=== PATIENT | female | born 1980 | race Caucasian/White ===

== ENCOUNTER 2018-11-03 13:50 | Observation (INO) ==
[2018-11-03 14:54] LABS: Bilirubin,Urine Negative (Negative); Blood,Urine Moderate (Negative); Clarity,Urine Turbid (Clear); Color,Urine Yellow (Yellow); Glucose,Urine (UA) Normal (Normal); Ketones,Urine Negative (Negative); Leukocyte Esterase,Urine Large (Negative); Nitrite,Urine Positive (Negative); PH,Urine 6.5 pH Units (5.0-8.0); Protein,Urine 100 mg/dL (Neg-Trace); Specific Gravity,Urine 1.011 (1.010-1.025); Urobilinogen,Urine Normal (Normal)
[2018-11-03 14:59] LABS: Bacteria,Urine Moderate per hpf (None-Few); Squamous Epithelial Cell,Urine Many per lpf (None-Few); WBC,Urine TNTC per hpf (0-3)
[2018-11-03 15:30] LABS: Basophils % 0.2 %; Hematocrit 38.6 % (35.3-44.9); Hemoglobin 13.3 g/dL (11.5-15.4); Immature Granulocytes % 0.5 % (0-4); Lymphocytes # 2.1 K/mcL (0.6-4.6); Lymphocytes % 8.4 %; Mean Corpuscular HGB Conc 34.5 g/dL (31.6-35.5); Mean Corpuscular Hemoglobin 30.6 pg (28.0-33.3); Mean Corpuscular Volume 88.7 fL (83.0-100.0); Mean Platelet Volume 9.5 fL (9.4-12.4); Monocytes % 8.2 %; Neutrophils # 20.5 K/mcL (1.6-8.9); Platelet Count 327 K/mcL (140-400); Red Blood Count 4.35 M/mcL (3.82-4.97); Red Cell Distribution Width 12.4 % (11.5-14.5); Segmented Neutrophils % 82.7 %
[2018-11-03 15:40] LABS: Alanine Aminotransferase 72 Units/L (7-52); Alkaline Phosphatase 82 Units/L (34-104); Amylase 19 Units/L (29-103); Aspartate Amino Transferase 37 Units/L (13-39); BUN/Creatinine Ratio 8 (6-26); Bilirubin,Direct 0.2 mg/dL (0.0-0.2); Bilirubin,Indirect 0.6 mg/dL (0.0-1.2); Bilirubin,Total 0.8 mg/dL (0.3-1.0); Blood Urea Nitrogen 7 mg/dL (6-20); Calcium 9.2 mg/dL (8.6-10.3); Carbon Dioxide 27 mEq/L (23-29); Chloride 97 mEq/L (98-107); Globulin 4.2 g/dL (2.4-3.5); Glucose 102 mg/dL (70-105); Lipase < 3 Units/L (11-82); Osmolality,Calculated 266 (280-300); Potassium 4.2 mEq/L (3.5-5.1); Sodium 129 mEq/L (136-145); Total Protein 8.2 g/dL (6.4-8.9); eGFR For Non-African Americans > 60 (> 60)
[2018-11-03] MEDS ORDERED: *HR* FentaNYL (PF) 100 MCG/2 ML VIAL IVP ONE (16:14)
[2018-11-03] MEDS ORDERED: cefTRIAXone 1,000 MG in 0.9 % Sodium Chloride Mini Bag 100 ML IVPB ONE (16:14)
[2018-11-03] MEDS ORDERED: Ondansetron 4 MG/2 ML VIAL IVP ONE (16:14)
[2018-11-03] MEDS ORDERED: 0.9 % Sodium Chloride 1,000 ML IVC ONE ×2 (16:14→17:45)
--- NOTE | 2018-11-03 16:16 | Emergency Department Note ---
Disposition Clinical Impression: Pyelonephritis Disposition: Admitted As Inpatient Condition: Fair General Adult HPI - General Chief complaint: ED Abdominal Pain Stated complaint: Flank pain Time Seen by Provider: 11/03/18 16:09 - History of Present Illness Pain Scale: 10 - Related Data Home Medications Medication Instructions Recorded Confirmed Cyanocobalamin (B-12) [Vitamin B12] 1,000 mcg PO DAILY 11/03/18 11/03/18 Allergies Allergy/AdvReac Type Severity Reaction Status Date / Time tramadol AdvReac Severe Unconscious Verified 11/03/18 14:21 Past Medical History - Past Medical History Medical history: Reports: non-contributory Surgical history: Reports: cholecystectomy, other (back surgery) Psychiatric history: Reports: no psych history - Social History Smoking Status: Current every day smoker Smokeless Tobacco Status: No Alcohol use: Reports: none Drug use: Reports: none Course Vital Signs Temperature 99.2 F 11/03/18 14:19 Pulse Rate 124 11/03/18 14:19 Respiratory Rate 16 11/03/18 14:19 Blood Pressure 109/66 11/03/18 14:19 O2 Sat by Pulse Oximetry 99 11/03/18 14:19 Temperature 99.2 F 11/03/18 16:20 Pulse Rate 123 11/03/18 18:32 Respiratory Rate 16 11/03/18 18:32 Blood Pressure 113/74 11/03/18 18:32 O2 Sat by Pulse Oximetry 95 11/03/18 18:32 Oxygen Delivery Oxygen Delivery Room Air Medical Decision Making - Lab Data Result diagrams: 11/03/18 14:22 11/03/18 14:22 Lab Results 11/03/18 11/03/18 11/03/18 Range/Units 14:00 14:00 14:22 WBC 24.8 H (4.3-11.1) K/mcL RBC 4.35 (3.82-4.97) M/mcL Hgb 13.3 (11.5-15.4) g/dL Hct 38.6 (35.3-44.9) % MCV 88.7 (83.0-100.0) fL MCH 30.6 (28.0-33.3) pg MCHC 34.5 (31.6-35.5) g/dL RDW 12.4 (11.5-14.5) % Plt Count 327 (140-400) K/mcL MPV 9.5 (9.4-12.4) fL Immature Gran % 0.5 (0-4) % Seg Neutrophils % 82.7 % Lymphocytes % 8.4 % Monocytes % 8.2 % Eosinophils % 0.0 % Basophils % 0.2 % Neutrophils # 20.5 H (1.6-8.9) K/mcL Lymphocytes # 2.1 (0.6-4.6) K/mcL Monocytes # 2.0 H (0.0-1.3) K/mcL Eosinophils # 0.0 (0.0-0.6) K/mcL Basophils # 0.0 (0.0-0.2) K/mcL Sodium (136-145) mEq/L Potassium (3.5-5.1) mEq/L Chloride (98-107) mEq/L Carbon Dioxide (23-29) mEq/L BUN (6-20) mg/dL Creatinine (0.60-1.20) mg/dL Est GFR ( Amer) (> 60) Est GFR (Non-Af Amer) (> 60) BUN/Creatinine Ratio (6-26) Glucose (70-105) mg/dL Calculated Osmolality (280-300) Calcium (8.6-10.3) mg/dL Total Bilirubin (0.3-1.0) mg/dL Direct Bilirubin (0.0-0.2) mg/dL Indirect Bilirubin (0.0-1.2) mg/dL AST (13-39) Units/L ALT (7-52) Units/L Alkaline Phosphatase (34-104) Units/L Serum Total Protein (6.4-8.9) g/dL Albumin (3.5-5.7) g/dL Globulin (2.4-3.5) g/dL Albumin/Globulin Ratio (1.1-2.2) Amylase (29-103) Units/L Lipase (11-82) Units/L Urine Color Yellow (Yellow) Urine Clarity Turbid A (Clear) Urine pH 6.5 (5.0-8.0) pH Units Ur Specific [place] 1.011 (1.010-1.025) Urine Protein 100 H (Neg-Trace) mg/dL Urine Glucose (UA) Normal (Normal) mg/dL Urine Ketones Negative (Negative) mg/dL Urine Blood Moderate H (Negative) Urine Nitrite Positive A (Negative) Urine Bilirubin Negative (Negative) Urine Urobilinogen Normal (Normal) mg/dL Ur Leukocyte Esterase Large H (Negative) Urine Microscopic RBC 3-5 H (0-3) per hpf Urine Microscopic WBC TNTC H (0-3) per hpf Ur Squamous Epith Cells Many H (None-Few) per lpf Urine Bacteria Moderate H (None-Few) per hpf Ur Culture Indicated? NO. A (NO) Urine Test Negative (Negative) 11/03/18 Range/Units 14:22 WBC (4.3-11.1) K/mcL RBC (3.82-4.97) M/mcL Hgb (11.5-15.4) g/dL Hct (35.3-44.9) % MCV (83.0-100.0) fL MCH (28.0-33.3) pg MCHC (31.6-35.5) g/dL RDW (11.5-14.5) % Plt Count (140-400) K/mcL MPV (9.4-12.4) fL Immature Gran % (0-4) % Seg Neutrophils % % Lymphocytes % % Monocytes % % Eosinophils % % Basophils % % Neutrophils # (1.6-8.9) K/mcL Lymphocytes # (0.6-4.6) K/mcL Monocytes # (0.0-1.3) K/mcL Eosinophils # (0.0-0.6) K/mcL Basophils # (0.0-0.2) K/mcL Sodium 129 L (136-145) mEq/L Potassium 4.2 (3.5-5.1) mEq/L Chloride 97 L (98-107) mEq/L Carbon Dioxide 27 (23-29) mEq/L BUN 7 (6-20) mg/dL Creatinine 0.85 (0.60-1.20) mg/dL Est GFR ( Amer) > 60 (> 60) Est GFR (Non-Af Amer) > 60 (> 60) BUN/Creatinine Ratio 8 (6-26) Glucose 102 (70-105) mg/dL Calculated Osmolality 266 L (280-300) Calcium 9.2 (8.6-10.3) mg/dL Total Bilirubin 0.8 (0.3-1.0) mg/dL Direct Bilirubin 0.2 (0.0-0.2) mg/dL Indirect Bilirubin 0.6 (0.0-1.2) mg/dL AST 37 (13-39) Units/L ALT 72 H (7-52) Units/L Alkaline Phosphatase 82 (34-104) Units/L Serum Total Protein 8.2 (6.4-8.9) g/dL Albumin 4.0 (3.5-5.7) g/dL Globulin 4.2 H (2.4-3.5) g/dL Albumin/Globulin Ratio 1.0 L (1.1-2.2) Amylase 19 L (29-103) Units/L Lipase < 3 L (11-82) Units/L Urine Color (Yellow) Urine Clarity (Clear) Urine pH (5.0-8.0) pH Units Ur Specific [place] (1.010-1.025) Urine Protein (Neg-Trace) mg/dL Urine Glucose (UA) (Normal) mg/dL Urine Ketones (Negative) mg/dL Urine Blood (Negative) Urine Nitrite (Negative) Urine Bilirubin (Negative) Urine Urobilinogen (Normal) mg/dL Ur Leukocyte Esterase (Negative) Urine Microscopic RBC (0-3) per hpf Urine Microscopic WBC (0-3) per hpf Ur Squamous Epith Cells (None-Few) per lpf Urine Bacteria (None-Few) per hpf Ur Culture Indicated? (NO) Urine Test (Negative) Attestation Statement - Attestation Attestation: I examined this patient and my medical decision-making was reviewed with the Resident Physician. I agree with the documented findings, disposition and treatment plan as described except to the extent set forth below. [id number] time provided Patient arrives complaining of right-sided flank pain and dysuria. She describes it "mckinney" when she urinates. She is uncomfortable appearing. Labs drawn at triage indicated leukocytosis. Concern for pyelonephritis. Patient evaluated in conjunction with the resident physician Dr. Monk
--- NOTE | 2018-11-03 16:32 | Emergency Department Note ---
Disposition Clinical Impression: Pyelonephritis Disposition: Admitted As Inpatient Condition: Fair Time of Disposition: 18:12 General Adult HPI - General Chief complaint: ED Abdominal Pain Stated complaint: Flank pain Time Seen by Provider: 11/03/18 16:09 Source: patient Mode of arrival: ambulatory Limitations: no limitations Nursing Notes Reviewed: Yes Vital Signs Reviewed: Yes - History of Present Illness HPI Narrative: This is a 38-year-old female with past medical history significant for cholecystectomy, migraines who presents with flank pain over the course of 3 days. Patient notes worsening right-sided flank pain, fevers/chills off and on, dysuria, urinary frequency, urgency, suprapubic abdominal pain, bloating. Associated with blurred vision, headache, weakness, fatigue, malaise. Denies hematuria, melena, hematochezia, diarrhea, constipation, chest pain, shortness o f breath. Pain is sharp and 10/10 at worst. Even when pain subsides, still rated 5/10, described as achy, dull. Managed with ibuprofen, Tylenol, 1 dose of Vicodin thus far. Has never had UTI in the past. History of cholecystectomy and tubal ligation previously. Pt Subjective Complaint: Flank Pain Onset (ago): day(s) (3 days ago) Location: back, abdomen, pelvis Radiation: flank Pain Severity: severe Pain Scale: 10 Quality: aching, sharp Consistency: constant Improves with: nothing Worsens with: nothing Associated symptoms: Reports: diaphoresis, fever/chills, headaches, loss of appetite, malaise, nausea/vomiting, weakness. Denies: confusion, chest pain, cough, rash, shortness of breath, syncope Treatments Prior to Arrival: NSAID - Related Data Previous Rx's Medication Instructions Recorded Cephalexin [Keflex] 500 mg PO QID 7 Days capsule 05/08/15 Clindamycin [Cleocin] 300 mg PO Q6HR 7 Days capsule 05/08/15 Ibuprofen [Motrin] 600 mg PO Q6H PRN #60 tablet 05/08/15 Diclofenac Sodium [Voltaren] 1 appl TP QID #100 gm 06/12/17 Magic Mouthwash [Magic Mouthwash 10 ml PO QID #240 ml 06/12/17 BLM] PredniSONE [Deltasone] 20 mg PO DAILY #12 tablet 06/12/17 Tizanidine HCl 4 mg PO TID #15 tablet 06/12/17 Allergies Allergy/AdvReac Type Severity Reaction Status Date / Time tramadol AdvReac Severe Unconscious Verified 11/03/18 14:21 All systems ED: reviewed and negative except as stated. Constitutional: Reports: fever, chills. Denies: weakness, night sweats Eyes: Reports: other (Blurry vision). Denies: vision change ENT ED: Reports: other (Dry mouth). Denies: hearing loss Cardiovascular: Denies: chest pain, palpitations, dyspnea on exertion Respiratory: Denies: cough, dyspnea, wheezes Gastrointestinal: Reports: abdominal pain, nausea. Denies: vomiting, diarrhea, constipation, hematemesis, melena, hematochezia Genitourinary: Reports: urgency, dysuria, frequency. Denies: hematuria Musculoskeletal: Reports: back pain (Flank pain) Integumentary: Denies: rash Neurological: Reports: headache Endocrine: Reports: fatigue Past Medical History - Past Medical History Attestation: Yes The following information was validated with the patient. Source: patient, old records reviewed Medical history: Reports: migraine Surgical history: Reports: cholecystectomy, other (back surgery) Psychiatric history: Reports: no psych history - Social History Smoking Status: Current every day smoker Smokeless Tobacco Status: No Alcohol use: Reports: none Drug use: Reports: none Physical Exam 38-year-old female in obvious pain - General Limitations: no limitations General appearance: alert, in no apparent distress - Head Head exam: atraumatic, normocephalic, normal inspection - Eye Eye exam: Present: normal appearance, PERRL, EOMI - ENT ENT exam: normal exam, normal oropharynx, mucous membranes dry - Chest Chest inspection: Present: normal inspection, symmetric chest wall rise - Respiratory Respiratory exam: Present: normal lung sounds bilaterally - Cardiovascular Cardiovascular exam: Present: normal rhythm, tachycardia, normal heart sounds, +S1 - Abdominal Exam Abdominal exam: Present: soft, tenderness (Diffuse mild tenderness to pal pation), normal bowel sounds, other (Right-sided CVA tenderness). Absent: distention, guarding, rebound, Rovsing's sign, tenderness at [place]Bur[place]'s Point Abdominal tenderness: Present: diffuse - Back Exam Back exam: Present: normal inspection, full ROM, CVA tenderness (R). Absent: muscle spasm, paraspinal tenderness - Neurological Exam Neurological exam: Present: alert, oriented X3, CN II-XII intact - Psychiatric Psychiatric exam: Present: normal affect, normal mood Course Course Narrative: 38-year-old female presents with three-day of right-sided flank pain, fevers/chills, dysuria, urinary frequency. Leukocytosis = 24.8. Urinalysis = positive blood, positive nitrates, positive leukocyte esterase. On physical exam, looks to be in significant pain in moderate distress. Patient has right CVA tenderness, diffuse abdominal tenderness to palpation. Amylase and lipase were negative. LFTs were also negative. Patient was given fentanyl for pain control, bolus of normal saline, and started on ceftriaxone for broad spectrum coverage for suspected pyelonephritis. CT abdomen and pelvis ordered. Notable for infiltration of fat and pararenal spaces bilaterally more so on the right side. No obstructing stone visualized. Findings suggestive of pyelonephritis. Given likelihood of pyelonephritis, spoke with Dr. Estevez and will admit patient to hospitalist service. We will additionally give patient 1 L bolus of normal saline. - Reevaluation(s) Reevaluation #1: Patient seen and examined with Dr. Calle. Labs indicate leukocytosis = 24.8. Also noted to have hyponatremia = 129. Otherwise LFTs within normal limits. UA notable for positive blood, positive nitrites, positive leukocyte esterase. UPreg = negative. He is is start patient on pain control with fentanyl. We will give bolus of normal saline. We will try to control mild nausea with Zofran, and we will start ceftriaxone for broad spectrum antibiotic coverage. Will order CT abdomen and pelvis to evaluate for perinephric abscess and/or nephrolithiasis. Time: 16:45 Reevaluation #2: On reevaluation, patient is significantly less pain after pain medication. Given signs and symptoms of pyelonephritis, patient may benefit from hospitalization and continued IV antibiotic therapy. Time: 17:20 Reevaluation #3: Spoke with admitting hospitalist Dr. Estevez who agreed to admit to hospitalist service for management of pyelonephritis. Time: 17:50 Vital Signs Temperature 99.2 F 11/03/18 14:19 Pulse Rate 124 11/03/18 14:19 Respiratory Rate 16 11/03/18 14:19 Blood Pressure 109/66 11/03/18 14:19 O2 Sat by Pulse Oximetry 99 11/03/18 14:19 Temperature 99.2 F 11/03/18 16:20 Pulse Rate 114 11/03/18 16:20 Respiratory Rate 16 11/03/18 16:20 Blood Pressure 112/78 11/03/18 16:20 O2 Sat by Pulse Oximetry 98 11/03/18 16:20 Oxygen Delivery Oxygen Delivery Room Air Medical Decision Making - [facility] Narrative Medical decision making narrative: This is a 38-year-old female who presents with three-day of right-sided flank pain, dysuria, frequency. On exam, patient is in notable distress, and reports pain on her right side. Vitals show that she was tachycardic and tachypneic, but afebrile. Labs notable for leukocytosis = 24.8. UA = positive blood, positive nauseous, positive leukocyte esterase. Amylase and lipase were negative. Ordered CT and abdomen and pelvis to evaluate for perinephric abscess and nephrolithiasis, which were both negative. Patient started on fluids, ceftriaxone, and given pain and nausea control. Discussed with the admitting hospitalist Dr. Estevez who agreed to accept patient for further management of pyelonephritis. - Differential Diagnosis Pyelonephritis, UTI, nephrolithiasis, perinephric abscess - Medical Records Medical records reviewed: Yes I reviewed the patient's medical records. - Lab Data Lab results reviewed: Yes I reviewed the patient's lab results. Result diagrams: 11/03/18 14:22 11/03/18 14:22 Lab Results 11/03/18 11/03/18 11/03/18 Range/Units 14:00 14:00 14:22 WBC 24.8 H (4.3-11.1) K/mcL RBC 4.35 (3.82-4.97) M/mcL Hgb 13.3 (11.5-15.4) g/dL Hct 38.6 (35.3-44.9) % MCV 88.7 (83.0-100.0) fL MCH 30.6 (28.0-33.3) pg MCHC 34.5 (31.6-35.5) g/dL RDW 12.4 (11.5-14.5) % Plt Count 327 (140-400) K/mcL MPV 9.5 (9.4-12.4) fL Immature Gran % 0.5 (0-4) % Seg Neutrophils % 82.7 % Lymphocytes % 8.4 % Monocytes % 8.2 % Eosinophils % 0.0 % Basophils % 0.2 % Neutrophils # 20.5 H (1.6-8.9) K/mcL Lymphocytes # 2.1 (0.6-4.6) K/mcL Monocytes # 2.0 H (0.0-1.3) K/mcL Eosinophils # 0.0 (0.0-0.6) K/mcL Basophils # 0.0 (0.0-0.2) K/mcL Sodium (136-145) mEq/L Potassium (3.5-5.1) mEq/L Chloride (98-107) mEq/L Carbon Dioxide (23-29) mEq/L BUN (6-20) mg/dL Creatinine (0.60-1.20) mg/dL Est GFR ( Amer) (> 60) Est GFR (Non-Af Amer) (> 60) BUN/Creatinine Ratio (6-26) Glucose (70-105) mg/dL Calculated Osmolality (280-300) Calcium (8.6-10.3) mg/dL Total Bilirubin (0.3-1.0) mg/dL Direct Bilirubin (0.0-0.2) mg/dL Indirect Bilirubin (0.0-1.2) mg/dL AST (13-39) Units/L ALT (7-52) Units/L Alkaline Phosphatase (34-104) Units/L Serum Total Protein (6.4-8.9) g/dL Albumin (3.5-5.7) g/dL Globulin (2.4-3.5) g/dL Albumin/Globulin Ratio (1.1-2.2) Amylase (29-103) Units/L Lipase (11-82) Units/L Urine Color Yellow (Yellow) Urine Clarity Turbid A (Clear) Urine pH 6.5 (5.0-8.0) pH Units Ur Specific [place] 1.011 (1.010-1.025) Urine Protein 100 H (Neg-Trace) mg/dL Urine Glucose (UA) Normal (Normal) mg/dL Urine Ketones Negative (Negative) mg/dL Urine Blood Moderate H (Negative) Urine Nitrite Positive A (Negative) Urine Bilirubin Negative (Negative) Urine Urobilinogen Normal (Normal) mg/dL Ur Leukocyte Esterase Large H (Negative) Urine Microscopic RBC 3-5 H (0-3) per hpf Urine Microscopic WBC TNTC H (0-3) per hpf Ur Squamous Epith Cells Many H (None-Few) per lpf Urine Bacteria Moderate H (None-Few) per hpf Ur Culture Indicated? NO. A (NO) Urine Test Negative (Negative) 11/03/18 Range/Units 14:22 WBC (4.3-11.1) K/mcL RBC (3.82-4.97) M/mcL Hgb (11.5-15.4) g/dL Hct (35.3-44.9) % MCV (83.0-100.0) fL MCH (28.0-33.3) pg MCHC (31.6-35.5) g/dL RDW (11.5-14.5) % Plt Count (140-400) K/mcL MPV (9.4-12.4) fL Immature Gran % (0-4) % Seg Neutrophils % % Lymphocytes % % Monocytes % % Eosinophils % % Basophils % % Neutrophils # (1.6-8.9) K/mcL Lymphocytes # (0.6-4.6) K/mcL Monocytes # (0.0-1.3) K/mcL Eosinophils # (0.0-0.6) K/mcL Basophils # (0.0-0.2) K/mcL Sodium 129 L (136-145) mEq/L Potassium 4.2 (3.5-5.1) mEq/L Chloride 97 L (98-107) mEq/L Carbon Dioxide 27 (23-29) mEq/L BUN 7 (6-20) mg/dL Creatinine 0.85 (0.60-1.20) mg/dL Est GFR ( Amer) > 60 (> 60) Est GFR (Non-Af Amer) > 60 (> 60) BUN/Creatinine Ratio 8 (6-26) Glucose 102 (70-105) mg/dL Calculated Osmolality 266 L (280-300) Calcium 9.2 (8.6-10.3) mg/dL Total Bilirubin 0.8 (0.3-1.0) mg/dL Direct Bilirubin 0.2 (0.0-0.2) mg/dL Indirect Bilirubin 0.6 (0.0-1.2) mg/dL AST 37 (13-39) Units/L ALT 72 H (7-52) Units/L Alkaline Phosphatase 82 (34-104) Units/L Serum Total Protein 8.2 (6.4-8.9) g/dL Albumin 4.0 (3.5-5.7) g/dL Globulin 4.2 H (2.4-3.5) g/dL Albumin/Globulin Ratio 1.0 L (1.1-2.2) Amylase 19 L (29-103) Units/L Lipase < 3 L (11-82) Units/L Urine Color (Yellow) Urine Clarity (Clear) Urine pH (5.0-8.0) pH Units Ur Specific [place] (1.010-1.025) Urine Protein (Neg-Trace) mg/dL Urine Glucose (UA) (Normal) mg/dL Urine Ketones (Negative) mg/dL Urine Blood (Negative) Urine Nitrite (Negative) Urine Bilirubin (Negative) Urine Urobilinogen (Normal) mg/dL Ur Leukocyte Esterase (Negative) Urine Microscopic RBC (0-3) per hpf Urine Microscopic WBC (0-3) per hpf Ur Squamous Epith Cells (None-Few) per lpf Urine Bacteria (None-Few) per hpf Ur Culture Indicated? (NO) Urine Test (Negative) - Radiology Data Radiology results reviewed: Yes I reviewed the patient's radiology results.
[2018-11-03] MEDS ORDERED: Acetaminophen 325 MG TABLET PO PRN (20:38)
[2018-11-03] MEDS ORDERED: Naloxone 0.4 MG/ML INJ IVP PRN (20:38)
[2018-11-03] MEDS ORDERED: Ondansetron 4 MG/2 ML VIAL IVP PRN (20:38)
[2018-11-03] MEDS ORDERED: *HR* OxyCODONE Immed Rel 5 MG TABLET PO PRN (20:38)
[2018-11-03] MEDS ORDERED: Ketorolac 30 MG/ML VIAL IVP PRN (20:39)
[2018-11-03] MEDS: *HR* HYDROcodone/Acet 5/325 mg TABLET PO PRN (22:14)
[2018-11-03] MEDS: 0.9 % Sodium Chloride 1,000 ML IVC SCH (22:15)
--- NOTE | 2018-11-03 22:54 | Internal Med History&Physical ---
Date of Encounter: 11/03/18 Time of Encounter: 22:52 Internal Medicine - H&P: HPI Chief complaint: flank pain Admitted From: Home Plans for Post Hospital Care: Home History of present illness: Megan Joiner is a 38 year old woman with no reported past medical history who presents to the ER complaining of 3 days of right lumbar flank pain, dysuria, cloudy urine, pollakiuria and chills. She denied associated nausea, vomiting and diarrhea however. She was managing it with ibuprofen, APAP and Vicodin thus far. In the ER she was notably tachycardic. Her UA was remarkably suggestive of infection. CT of her abdomen and pelvis showed infiltration of the fat in the pararenal spaces more so on the right side with findings suggestive of pyelonephritis. She was started on fluid resuscitation and given an initial dose of ceftriaxone. She is admitted for further observation. At the time of my assessment her chief complaint was pain in notable discomfort. Vitals: Reviewed General: Well-developed female in antalgic posturing. Skin: Warm, dry HEENT: Dry mucous membranes. No conjunctivae pallor. Neck: No lymphadenopathy. No JVD. No carotid bruits. No palpable thyroid. Chest: Normal thoracic expansion. Normal breath sounds. Clear to auscultation. Heart: Normal S1 & S2; rhythmic. No rubs or murmurs. Abdomen: Non-distended, soft and tender to palpation on the right side. (+) right CVA tenderness. Extremities: No clubbing, cyanosis or edema. No calf tenderness. Normal distal pulses. Neurological: Awake, alert and oriented to person, place and time. No focal deficits. Psych: Affect appropriate. Past Med Surg Social Fam HX - Past Medical History Medical history: non-contributory Psychiatric history: no psych history - Past Surgical History Surgical History: cholecystectomy, other Additional surgical history: gallbladder 6 yrs ago, back 2 yrs ago - Social History Smoking Status: Current every day smoker Smokeless Tobacco Status: No Alcohol use: none Drug use: none - Family History Mother Adopted: No Living Status: Still Living Hx Family Cardiac Disorders: No Hx Family Respiratory Disorders: No Hx Family Cancer: No Hx Family GI Disorders: No Hx Family Endocrine Disorder: No Hx Family Neuromuscular Disorders: No Hx Family Neurologic Disorders: No Hx Family HEENT Disorders: No Hx Family Autoimmune Disorders: No Internal Medicine - H&P: Meds Cyanocobalamin (B-12) [Vitamin B12] 1,000 mcg PO DAILY 11/03/18 [History] Allergy/AdvReac Type Severity Reaction Status Date / Time tramadol AdvReac Severe Unconscious Verified 11/03/18 14:21 All Systems PM: A 10-system review of systems was performed and is negative for pertinent findings except as documented above in the HPI. - Constitutional Vitals: Temp Pulse Resp BP Pulse Ox 97.9 F 82 16 113/80 97 11/03/18 19:39 11/03/18 19:39 11/03/18 19:39 11/03/18 19:39 11/03/18 19:39 Exam: . Internal Med - H&P Results - Labs CBC & Chem 7: 11/03/18 14:22 11/03/18 14:22 Labs: Short CBC 11/03/18 Range/Units 14:22 WBC 24.8 H (4.3-11.1) K/mcL Hgb 13.3 (11.5-15.4) g/dL Hct 38.6 (35.3-44.9) % Plt Count 327 (140-400) K/mcL Neutrophils # 20.5 H (1.6-8.9) K/mcL BMP 11/03/18 14:22 Sodium 129 L Potassium 4.2 Chloride 97 L Carbon Dioxide 27 BUN 7 Creatinine 0.85 Glucose 102 Calcium 9.2 Liver Function 11/03/18 Range/Units 14:22 Total Bilirubin 0.8 (0.3-1.0) mg/dL Direct Bilirubin 0.2 (0.0-0.2) mg/dL AST 37 (13-39) Units/L ALT 72 H (7-52) Units/L Alkaline Phosphatase 82 (34-104) Units/L Albumin 4.0 (3.5-5.7) g/dL Urine 11/03/18 Range/Units 14:00 Urine Color Yellow (Yellow) Urine Clarity Turbid A (Clear) Urine pH 6.5 (5.0-8.0) pH Units Ur Specific [place] 1.011 (1.010-1.025) Urine Protein 100 H (Neg-Trace) mg/dL Urine Glucose (UA) Normal (Normal) mg/dL - Impressions ITS Impressions Abdomen/Pelvis CT 11/03/18 16:15 IMPRESSION: 1. Infiltration of the fat in the pararenal spaces bilaterally more so on the right side. No obstructing stone visualized. Findings suggest the possibility of pyelonephritis 2. Status post cholecystectomy 3. Normal appearing appendix D/ / Mendoza Moser MD / Mendoza Moser MD Interpreting Provider: Mendoza Moser MD - Assessment and Plan (1) Sepsis due to urinary tract infection Current Visit: Yes Status: Acute Assessment and plan: Sepsis syndrome as evidenced by high grade leukocytosis and tachycardia with a positive UA and CT scan that correlates with her clinical signs. Will send urine for culture. IVF hydration. Empiric ceftriaxone daily pending culture results. Pain control as needed. (2) Electrolyte abnormality Current Visit: Yes Status: Acute Assessment and plan: As evidenced by hyponatremia and hypochloremia possibly hypovolemic in origin. Supplementing with normal saline and will recheck in the morning. - Time Spent With Patient Total time spent is greater than 50% in coordination of care (as documented) at patient's floor/unit and/or counseling patient: Greater than 35 minutes
[2018-11-04 06:20] LABS: Basophils % 0.2 %; Eosinophils % 0.1 %; Hematocrit 36.5 % (35.3-44.9); Hemoglobin 12.1 g/dL (11.5-15.4); Immature Granulocytes % 0.5 % (0-4); Lymphocytes # 1.9 K/mcL (0.6-4.6); Lymphocytes % 9.6 %; Mean Corpuscular HGB Conc 33.2 g/dL (31.6-35.5); Mean Corpuscular Volume 90.3 fL (83.0-100.0); Mean Platelet Volume 10.5 fL (9.4-12.4); Monocytes # 1.5 K/mcL (0.0-1.3); Monocytes % 7.6 %; Neutrophils # 16.3 K/mcL (1.6-8.9); Platelet Count 205 K/mcL (140-400); Red Blood Count 4.04 M/mcL (3.82-4.97); Red Cell Distribution Width 12.6 % (11.5-14.5)
[2018-11-04] MEDS: 0.9 % Sodium Chloride 1,000 ML IVC SCH (06:58)
[2018-11-04] MEDS: *HR* Heparin 5,000 UNIT/ML VIAL SQ SCH ×2 (07:01→17:52)
[2018-11-04 07:16] LABS: BUN/Creatinine Ratio 11 (6-26); Blood Urea Nitrogen 9 mg/dL (6-20); Carbon Dioxide 21 mEq/L (23-29); Chloride 105 mEq/L (98-107); Glucose 89 mg/dL (70-105); Osmolality,Calculated 278 (280-300); Sodium 135 mEq/L (136-145); eGFR For Non-African Americans > 60 (> 60)
[2018-11-04] MEDS ORDERED: cefTRIAXone 1,000 MG in Water for inj. (sterile) 20 ML 10 ML IVPB SCH (09:00)
--- NOTE | 2018-11-04 10:15 | Internal Med Progress Note ---
<Keo Mccollum - Last Filed: 11/04/18 10:12> Hospitalist Progress Note - Encounter Date of Encounter: 11/04/18 Time of Encounter: 10:12 - Subjective Interval History: No acute events overnight. Patient states her right flank pain has improved but is still a 7 out of 10. She denies any nausea, vomiting. She tolerated her diet. She denies shortness of breath or chest pain. - Exam Vitals: Temp Pulse Resp BP Pulse Ox 99 F 109 20 96/65 99 11/04/18 07:36 11/04/18 07:36 11/04/18 07:36 11/04/18 07:36 11/04/18 07:36 Exam: General: pleasant, without distress Cardiovascualr: Regular rate and rhythm with no murmur, absent gallops or rubs, absent pedal edema, radial pulses 2 out of 4 Lungs: Clear to auscultation bilaterally, not in respiratory distress Abdomen: Soft nontender, nondistended positive bowel sounds, absent hepatomegaly Skin: warm and dry, absent rash, absent open wounds and nodules MSK: absent clubbing, cyanosis, joints without swelling Neuro: Alert oriented 3, no focal deficits Psych: good insight and judgment - Assessment and Plan (1) Sepsis Current Visit: Yes Status: Resolved Assessment and Plan: Patient was tachycardic, with leukocytosis on admission Tachycardia has resolved but still has leukocytosis of 19 Secondary to pyelonephritis She did receive a total of 3 L IV fluids. (2) Pyelonephritis Current Visit: Yes Status: Acute Assessment and Plan: Patient's right flank pain is improving with antibiotics, IV fluids and pain medication. We will continue ceftriaxone Blood cultures preliminarily negative Urine cultures pending. (3) Hyponatremia Current Visit: Yes Status: Acute Assessment and Plan: She has hyponatremia on admission. Likely secondary to poor oral intake Improving with IV fluids DVT Prophylaxis: Heparin subcutaneous - Time Spent with Patient Total time spent is greater than 50% in coordination of care (as documented) at patient's floor/unit and/or counseling patient: Internal Medicine: Result - Labs CBC & Chem 7: 11/04/18 05:29 11/04/18 05:29 Labs: Short CBC 11/03/18 11/04/18 Range/Units 14:22 05:29 WBC 24.8 H 19.8 H (4.3-11.1) K/mcL Hgb 13.3 12.1 (11.5-15.4) g/dL Hct 38.6 36.5 (35.3-44.9) % Plt Count 327 205 (140-400) K/mcL Neutrophils # 20.5 H 16.3 H (1.6-8.9) K/mcL BMP 11/03/18 11/04/18 14:22 05:29 Sodium 129 L 135 L Potassium 4.2 4.0 Chloride 97 L 105 Carbon Dioxide 27 21 L BUN 7 9 Creatinine 0.85 0.80 Glucose 102 89 Calcium 9.2 8.0 L Liver Function 11/03/18 Range/Units 14:22 Total Bilirubin 0.8 (0.3-1.0) mg/dL Direct Bilirubin 0.2 (0.0-0.2) mg/dL AST 37 (13-39) Units/L ALT 72 H (7-52) Units/L Alkaline Phosphatase 82 (34-104) Units/L Albumin 4.0 (3.5-5.7) g/dL Urine 11/03/18 Range/Units 14:00 Urine Color Yellow (Yellow) Urine Clarity Turbid A (Clear) Urine pH 6.5 (5.0-8.0) pH Units Ur Specific [place] 1.011 (1.010-1.025) Urine Protein 100 H (Neg-Trace) mg/dL Urine Glucose (UA) Normal (Normal) mg/dL - Impressions Impressions Abdomen/Pelvis CT 11/03/18 16:15 IMPRESSION: 1. Infiltration of the fat in the pararenal spaces bilaterally more so on the right side. No obstructing stone visualized. Findings suggest the possibility of pyelonephritis 2. Status post cholecystectomy 3. Normal appearing appendix D/ / Mendoza Moser MD / Mendoza Moser MD Interpreting Provider: Mendoza Moser MD Consult Discharge Plan - Plan Referrals: Yaron Albrecht MD [Primary Care Provider] - <Ric Morales - Last Filed: 11/04/18 13:21> Hospitalist Progress Note - Encounter Date of Encounter: 11/04/18 - Exam Vitals: Temp Pulse Resp BP Pulse Ox 98.7 F 106 20 93/59 96 11/04/18 10:57 11/04/18 10:57 11/04/18 10:57 11/04/18 10:57 11/04/18 10:57 - Assessment and Plan (1) Sepsis due to urinary tract infection Current Visit: Yes Status: Acute (2) Electrolyte abnormality Current Visit: Yes Status: Acute - Time Spent with Patient Total time spent is greater than 50% in coordination of care (as documented) at patient's floor/unit and/or counseling patient: Internal Medicine: Result - Labs CBC & Chem 7: 11/04/18 05:29 11/04/18 05:29 Labs: Short CBC 11/03/18 11/04/18 Range/Units 14:22 05:29 WBC 24.8 H 19.8 H (4.3-11.1) K/mcL Hgb 13.3 12.1 (11.5-15.4) g/dL Hct 38.6 36.5 (35.3-44.9) % Plt Count 327 205 (140-400) K/mcL Neutrophils # 20.5 H 16.3 H (1.6-8.9) K/mcL BMP 11/03/18 11/04/18 14:22 05:29 Sodium 129 L 135 L Potassium 4.2 4.0 Chloride 97 L 105 Carbon Dioxide 27 21 L BUN 7 9 Creatinine 0.85 0.80 Glucose 102 89 Calcium 9.2 8.0 L Liver Function 11/03/18 Range/Units 14:22 Total Bilirubin 0.8 (0.3-1.0) mg/dL Direct Bilirubin 0.2 (0.0-0.2) mg/dL AST 37 (13-39) Units/L ALT 72 H (7-52) Units/L Alkaline Phosphatase 82 (34-104) Units/L Albumin 4.0 (3.5-5.7) g/dL Urine 11/03/18 Range/Units 14:00 Urine Color Yellow (Yellow) Urine Clarity Turbid A (Clear) Urine pH 6.5 (5.0-8.0) pH Units Ur Specific [place] 1.011 (1.010-1.025) Urine Protein 100 H (Neg-Trace) mg/dL Urine Glucose (UA) Normal (Normal) mg/dL - Impressions Impressions Abdomen/Pelvis CT 11/03/18 16:15 IMPRESSION: 1. Infiltration of the fat in the pararenal spaces bilaterally more so on the right side. No obstructing stone visualized. Findings suggest the possibility of pyelonephritis 2. Status post cholecystectomy 3. Normal appearing appendix D/ / Mendoza Moser MD / Mendoza Moser MD Interpreting Provider: Mendoza Moser MD - Attending Attestation I have seen and independently assessed this patient and I agree with plan as documented above Plan Sepsis 2/2 to acute pyelonpehritis. Continue IV fluids and antibiotics <Keo Mccollum - Last Filed: 11/04/18 10:12> (1) Sepsis Qualifiers: Sepsis type: sepsis due to unspecified organism Qualified Code(s): A41.9 - Sepsis, unspecified organism
[2018-11-04] MEDS: cefTRIAXone 2,000 MG in Water for inj. (sterile) 20 ML 20 ML IVP SCH (10:16)
[2018-11-04] MEDS: *HR* HYDROcodone/Acet 5/325 mg TABLET PO PRN ×2 (10:26→17:51)
[2018-11-04] MEDS: Nicotine 21 MG PATCH.TD24 TD SCH (14:39)
[2018-11-05] MEDS: *HR* HYDROcodone/Acet 5/325 mg TABLET PO PRN (05:15)
[2018-11-05] MEDS: *HR* Heparin 5,000 UNIT/ML VIAL SQ SCH (05:16)
[2018-11-05] MEDS: Nicotine 21 MG PATCH.TD24 TD SCH (09:58)
[2018-11-05] MEDS: cefTRIAXone 2,000 MG in Water for inj. (sterile) 20 ML 20 ML IVP SCH (09:58)
[2018-11-05 10:08] LABS: Basophils % 0.2 %; Eosinophils % 0.1 %; Hematocrit 34.7 % (35.3-44.9); Hemoglobin 12.2 g/dL (11.5-15.4); Immature Granulocytes % 0.6 % (0-4); Lymphocytes # 2.1 K/mcL (0.6-4.6); Lymphocytes % 15.9 %; Mean Corpuscular HGB Conc 35.2 g/dL (31.6-35.5); Mean Corpuscular Hemoglobin 30.5 pg (28.0-33.3); Mean Corpuscular Volume 86.8 fL (83.0-100.0); Mean Platelet Volume 10.3 fL (9.4-12.4); Monocytes # 0.9 K/mcL (0.0-1.3); Monocytes % 6.9 %; Neutrophils # 10.1 K/mcL (1.6-8.9); Platelet Count 200 K/mcL (140-400); Red Cell Distribution Width 12.3 % (11.5-14.5); Segmented Neutrophils % 76.3 %
[2018-11-05 10:58] VITALS: BP 98/68
[2018-11-05 11:11] LABS: BUN/Creatinine Ratio 11 (6-26); Blood Urea Nitrogen 8 mg/dL (6-20); Calcium 8.2 mg/dL (8.6-10.3); Carbon Dioxide 19 mEq/L (23-29); Chloride 106 mEq/L (98-107); Glucose 126 mg/dL (70-105); Osmolality,Calculated 280 (280-300); Potassium 4.6 mEq/L (3.5-5.1); Sodium 135 mEq/L (136-145); eGFR For Non-African Americans > 60 (> 60)
--- NOTE | 2018-11-05 12:13 | Discharge Summary ---
<Veda,Keo Cordon - Last Filed: 11/05/18 12:02> - NOTES TO OUTPATIENT PROVIDER Notes to Outpatient Provider: Patient admitted for pyelonephritis received 2 days of IV antibiotics. Will be discharged with 8 days of cefnidir Orders not resulted at time of discharge: Pending orders 11/03/18 18:13 Culture,Blood [BC] Stat Date of Encounter: 11/05/18 Time of Encounter: 12:02 - Discharge Diagnosis (1) Sepsis Priority: Primary Status: Resolved Qualifiers: Sepsis type: sepsis due to unspecified organism Qualified Code(s): A41.9 - Sepsis, unspecified organism (2) Pyelonephritis Priority: Secondary Status: Acute (3) Hyponatremia Priority: Secondary Status: Resolved Hospital course: Ms. Joiner is a 38 year old female presented nausea vomiting and right flank pain. CT of the pelvis showed right patella nephritis and patient was started on IV antibiotics and given IV fluids. Patient had sepsis secondary to polyneph ritis on admission which has resolved. She has been afebrile without tachycardia. She will be discharged today with Omnicef for 8 days for total of 10 days of antibiotics. She is tolerating diet and ambulating independently. Discharge discussed with: patient - Time Spent with Patient Total time spent providing and/or coordinating discharge services: - Discharge Medications Prescriptions: New Cefdinir [Omnicef] 300 mg PO BID #16 capsule Continue Cyanocobalamin (B-12) [Vitamin B12] 1,000 mcg PO DAILY Home Medications: Cyanocobalamin (B-12) [Vitamin B12] 1,000 mcg PO DAILY 11/03/18 [History] Cefdinir [Omnicef] 300 mg PO BID #16 capsule 11/05/18 [Rx] Allergies/Adverse Reactions: Allergy/AdvReac Type Severity Reaction Status Date / Time tramadol AdvReac Severe Unconscious Verified 11/03/18 14:21 Date of admission: 11/03/18 17:58 Primary care physician: Yaron Albrecht MD Discharging clinician: Keo Mccollum Anticipated date of discharge: 11/05/18 - Constitutional Vitals: Temp Pulse Resp BP Pulse Ox 98.2 F 94 17 98/68 100 11/05/18 10:57 11/05/18 10:57 11/05/18 10:57 11/05/18 10:57 11/05/18 10:57 Exam: General: pleasant, without distress Cardiovascualr: Regular rate and rhythm with no murmur, absent gallops or rubs, absent pedal edema, radial pulses 2 out of 4 Lungs: Clear to auscultation bilaterally, not in respiratory distress Abdomen: Soft nontender, nondistended positive bowel sounds, absent hepatomegaly Skin: warm and dry, absent rash, absent open wounds and nodules MSK: absent clubbing, cyanosis, joints without swelling Neuro: Alert oriented 3, no focal deficits Psych: good insight and judgment - Patient Status Disposition: Home, Self-Care Condition: Fair Functional capacity at discharge: independent ambulation Overall status at discharge: patient is progressing back to baseline - Discharge Instructions Follow Up With: Yaron Albrecht MD [Primary Care Provider] - 11/14/18 11:00 am (Please follow up as schedule...) - Diet and Activity Activity: increase activity as tolerated Diet: advance to your usual diet <Ric Morales A - Last Filed: 11/05/18 15:10> Orders not resulted at time of discharge: Pending orders 11/03/18 18:13 Culture,Blood [BC] Stat Date of Encounter: 11/05/18 - Discharge Diagnosis (1) Sepsis due to urinary tract infection Status: Acute (2) Electrolyte abnormality Status: Acute Hospital course: Ms. Joiner is a 38 year old female - Time Spent with Patient Total time spent providing and/or coordinating discharge services: Date of admission: 11/03/18 17:58 Primary care physician: Yaron Albrecht MD - Constitutional Vitals: Temp Pulse Resp BP Pulse Ox 98.2 F 94 17 98/68 100 11/05/18 10:57 11/05/18 10:57 11/05/18 10:57 11/05/18 10:57 11/05/18 10:57 - Attending Attestation I have seen and independently assessed this patient and I agree with plan as documented above Exam Gen. NAD Resp CTAB GI. soft Plan Sepsis 2/2 to acute pyelonpehritis. Improved on IV fluids and antibiotics. Discharged to complete 10 more days of cefdinir. 35 minutes was spent discharging this patient
== END 2018-11-05 14:32 | disposition home or self-care (01) ==
LOC: 2ANU 13:50 → EMEROOARM 13:50 → SUATTDRO 17:58 → 2ANU 18:50
PROVIDERS: ADMIT Internal Medicine; ATTEND Student in an Organized Health Care Education/Training Program